=== PATIENT | female | born 1940 | race Caucasian/White ===

== ENCOUNTER 2019-11-13 06:51 | Inpatient (IN) | payer MEDICARE, OTHER ==
--- NOTE | 2019-11-09 12:19 | Diagnostic Imaging Report ---
EXAMINATION: CHEST 2 VIEWS INDICATION: Pre-operative COMPARISON: None FINDINGS: LINES/TUBES:Left chest pacer. LUNGS:The lungs are mildly hyperinflated. No focal consolidation or pulmonary edema. PLEURA:No pleural effusion or pneumothorax. MEDIASTINUM:The cardiomediastinal silhouette appears normal in size and shape. BONES/SOFT TISSUES:No acute osseous injury. ABDOMEN:No free air under the diaphragm. IMPRESSION: No focal pneumonia or pulmonary edema. Signed by: Juli Nolan MD on 11/09/2019 12:16 PM
[2019-11-09 12:36] LABS: BASOPHILS % 0.4 % (0.0-1.0); EOSINOPHILS # (AUTO) 0.1 (0.0-0.4); EOSINOPHILS % 0.9 % (0.0-6.0); HEMATOCRIT 49.1 % (34.2-44.1); HEMOGLOBIN 15.9 g/dL (12.0-16.0); LYMPHOCYTES # (AUTO) 1.4 (1.0-3.2); LYMPHOCYTES % 18.5 % (18.0-39.1); MEAN CORPUSCULAR HEMOGLOBIN 27.7 pg (28-32); MEAN CORPUSCULAR HGB CONC 32.4 g/dL (31-35); MEAN CORPUSCULAR VOLUME 85.4 fL (81-99); MONOCYTES # (AUTO) 0.4 (0.2-0.8); MONOCYTES % 5.5 % (4.4-11.3); NEUTROPHILS # (AUTO) 5.5 (2.1-6.9); NEUTROPHILS % 74.4 % (38.7-80.0); PLATELET COUNT 247 x10e3/uL (140-360); RED BLOOD COUNT 5.75 x10e6/uL (3.6-5.1); RED CELL DISTRIBUTION WIDTH 14.5 % (11.7-14.4)
[~2019-11-13] VITALS: Ht 157.5 cm; Wt 63.5 kg
[~2019-11-13 06:51] MED LIST: ACETAMINOPHEN325 M1 PO; ALENDRONATE SOD70 MG PO; AMLODIPINE BESY10 MG PO; CEFAZOLIN SOD 1 GM/NS 50ML 100 ML IV ONE; CELECOXIB 200 MG CAP ONE; DEXAMETHASONE SOD PHOS 10 MG/1 ML VIAL ONE; ELIQUIS5 MG PO; GABAPENTIN 300 MG CAP ONE; LOSARTAN-HCTZ1 EACH PO; MELOXICAM7.5 MG PO
[2019-11-13] MEDS ORDERED: VANCOMYCIN HCL 1,000 MG ONE (06:52)
[2019-11-13] MEDS ORDERED: BACITRACIN 50,000 UNIT VIAL ONE (06:53)
[2019-11-13] MEDS ORDERED: SODIUM CHLORIDE 0.9% 500ML 500 ML ONE (06:53)
[2019-11-13] MEDS ORDERED: TRANEXAMIC ACID 1,000 MG/10 ML ML ONE (06:53)
[2019-11-13] MEDS ORDERED: ROPIVACAINE 246.25 MG, EPINEPHRINE HCL 1:1000 1ML 0.5 MG, CLONIDINE HCL 0.08 MG, KETORO... INJ ONE ×5 (08:00)
[2019-11-13] MEDS ORDERED: MICROFIBRILLER COLLAGEN HEMOSTAT 1 GM POWDER TP ONE (10:06)
[2019-11-13] MEDS ORDERED: VANCOMYCIN HCL 500 MG ONE (10:22)
[2019-11-13] MEDS ORDERED: DOCUSATE SODIUM 100 MG CAP PO PRN (11:00)
[2019-11-13] MEDS ORDERED: ACETAMINOPHEN 650 MG SUPP PR PRN (11:00)
[2019-11-13] MEDS ORDERED: HYDROCODONE/APAP 7.5MG-325MG 1 EA TAB PO PRN (11:00)
[2019-11-13] MEDS ORDERED: DIPHENHYDRAMINE HCL INJ 50 MG/ML VIAL IV PRN (11:00)
[2019-11-13] MEDS ORDERED: HYDROCODONE/APAP 5MG-325MG TAB PO PRN (11:00)
[2019-11-13] MEDS ORDERED: KETOROLAC TROMETHAMINE 30 MG/ML VIAL IV PRN (11:00)
[2019-11-13] MEDS: SODIUM CHLORIDE 0.9% 1000ML 1,000 ML IV SCH ×2 (11:00→22:50)
--- NOTE | 2019-11-13 11:07 | Diagnostic Imaging Report ---
EXAM: FEMUR ONE VIEW LEFT, HIP LEFT ONE VIEW / OR DATE: 11/13/2019 10:15 AM INDICATION: Postop COMPARISON: None FINDINGS: There are postsurgical changes from prior left hip arthroplasty with intact appearing hardware in anatomic position. There are postsurgical changes from recent left femoral fracture fixation with placement of fixation plates/wires. Alignment appears anatomic. There is associated soft tissue swelling and gas, likely postoperative. IMPRESSION: Expected postsurgical changes from recent left femoral fracture fixation. Signed by: Dr. Willam Fonseca MD on 11/13/2019 11:04 AM
[2019-11-13] MEDS ORDERED: METOCLOPRAMIDE HCL 10 MG/2ML VIAL ONE (11:26)
[2019-11-13] MEDS ORDERED: LACTATED RINGER'S 1,000 ML ONE (11:41)
--- NOTE | 2019-11-13 11:51 | Diagnostic Imaging Report ---
EXAM: FEMUR ONE VIEW LEFT, PELVIS AP 1-2 VIEWS DATE: 11/13/2019 11:10 AM INDICATION: Postop FINDINGS: There are postsurgical changes from prior left hip arthroplasty with intact appearing hardware in anatomic position. There are postsurgical changes from recent left femoral fracture fixation with placement of fixation plates/wires. Alignment appears anatomic. There is associated soft tissue swelling and gas, likely postoperative. Degenerative changes noted of the lumbosacral spine, bilateral facet joints, and right hip. The visualized intrapelvic contents are grossly unremarkable. IMPRESSION: Expected postsurgical changes from recent left femoral fracture fixation. Signed by: Dr. Willam Fonseca MD on 11/13/2019 11:48 AM
[2019-11-13 11:53] LABS: HEMATOCRIT 30.4 % (34.2-44.1); HEMOGLOBIN 9.7 g/dL (12.0-16.0)
[2019-11-13] MEDS ORDERED: SODIUM CHLORIDE 0.9% 250ML 250 ML IV ONE (12:15)
[2019-11-13] MEDS: ONDANSETRON HCL INJ 2MG/ML 2ML 2 MG/ML VIAL IV PRN (13:20)
[2019-11-13] MEDS ORDERED: KETOROLAC TROMETHAMINE 30 MG/ML VIAL ONE (13:22)
[2019-11-13 13:50] LABS: HEMATOCRIT 34.3 % (34.2-44.1); HEMOGLOBIN 10.7 g/dL (12.0-16.0)
--- NOTE | 2019-11-13 14:17 | NUR ---
received to rm aaox4 no distress noted, updated on poc voiced understanding, dsg to l hip c/d/i, nguyen to bsd with yellow urine noted, ivf infusing to r wrist 20g no ss of infiltration noted, denies pain at this time, no other co voiced call light in reach will continue to monitor
[2019-11-13] MEDS ORDERED: SEVOFLURANE INHAL SOLN 250 ML PEN BTL ONE (14:39)
[2019-11-13] MEDS ORDERED: ONDANSETRON HCL INJ 2MG/ML 2ML 2 MG/ML VIAL ONE (14:39)
[2019-11-13] MEDS ORDERED: LIDOCAINE HCL 2% JELLY 5 ML TUBE ONE (14:39)
[2019-11-13] MEDS ORDERED: ETOMIDATE 2 MG/ML 10 ML INJ IV ONE (14:39)
[2019-11-13] MEDS ORDERED: ROCURONIUM BROMIDE 10 MG/ML 5ML VIAL IV ONE (14:39)
[2019-11-13] MEDS ORDERED: LIDOCAINE HCL 2% LOCAL INJ 5 ML SDV VIAL INJ ONE (14:39)
[2019-11-13] MEDS ORDERED: ACETAMINOPHEN 1000 MG/100 ML IV ONE (14:39)
[2019-11-13] MEDS ORDERED: FENTANYL CITRATE/PF 100MCG/2 ML INJ ONE (14:56)
[2019-11-13 15:25] VITALS: BP 115/54
--- NOTE | 2019-11-13 15:38 | NUR ---
PT SIGNED CHOICE FOR [facility] FILED IN CHART AND ASKED SEC TO GET PACKET TOGETHER, WILL INITIATE MOT AND COVID FORM
[2019-11-13] MEDS ORDERED: ACETAMINOPHEN 1000 MG/100 ML IV PRN (16:00)
--- NOTE | 2019-11-13 16:00 | NUR ---
FAXED CLINICALS TO [facility] AT [phone]
[2019-11-13 16:37] VITALS: BP 99/54
[2019-11-13] MEDS: ASPIRIN 325 MG TAB PO SCH (16:49)
[2019-11-13] MEDS: CEFAZOLIN SOD 1 GM/NS 50ML 50 ML IV SCH (16:50)
[2019-11-13] MEDS: CELECOXIB 100 MG CAP PO SCH (16:50)
--- NOTE | 2019-11-13 19:17 | NUR ---
SHIFT REPORT GIVEN TO ONCOMING NIGHT NURSE PT LEFT IN STABLE CONDITION, CALL LIGHT IN REACH BED LOW, LOCKED POSITION
--- NOTE | 2019-11-13 19:25 | NUR ---
PATIENT RECEIVED AT BED SIDE REPORT. PATIENT IS RESTING IN BED, AAOX3. RESP EVEN AND UNLABORED. NO DISTRESS NOTED AT THIS TIME. LEFT HIP DRESSING NOTED, DRY AND INTACT. CALL LIGHT WITHIN REACH. INSTRUCT TO CALL FOR ASSISTANCE. BED LOW/LOCKED. SIDE RAIL UP X2. CONTINUE TO MONITOR CLOSELY
--- NOTE | 2019-11-13 19:35 | Operative Report ---
DATE OF PROCEDURE: 11/13/2019 SURGEON: Deric Jaramillo MD CORPORATE INTERN: Hudson Dyer, certified PA. 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 SECONDARY DIAGNOSIS: Mechanical complication pertaining to left hip prosthesis. POSTOPERATIVE DIAGNOSES: 1. Mechanical complication pertaining to left hip prosthesis. 2. Intraoperative distal femur fracture. PROCEDURES: Left femur debridement of malunion, total hip arthroplasty revision, open reduction and internal fixation of periprosthetic fracture, open reduction and internal fixation of secondary intraoperative distal femur fracture. INDICATIONS: The patient is a 78-year-old woman with a complicated history. 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 Approximately 3 months ago, she felt a pop in her left femur. She has been bedridden since that time. She presented to our clinic with a malunion of a periprosthetic femur of her left femoral shaft with a grossly loose femoral prosthesis. She has a well-fixed acetabular prosthesis. She has osteoporosis. The findings and options have been discussed at length with the patient and her family on several occasions. The challenges of fixing this fracture and getting her mobilized have been clearly discussed. They have thought about it and gone through preoperative medical clearance. She would now like to proceed with the surgery. PROCEDURE IN DETAIL: The patient was brought to the operating room and placed under general anesthetic. She received prophylactic antibiotics and tranexamic acid in the holding area. She was positioned in the right lateral decubitus position. Her left lower extremity was prepped and draped in a sterile manner. A preoperative time-out was performed. An extensile incision was made over the lateral left thigh extending up into her previous total hip arthroplasty scar. Hemostasis was obtained with electrocautery. The fascia was incised. The posterior capsule was exposed. The hip was severely contracted and there was a 50-degree angulated healing fracture of the femoral shaft. As the fracture site was carefully exposed, it was evident that there was a large amount of fibrous exudate from aseptic lysis of the femoral shaft. There was a large defect in the posterior femoral shaft. The fibrinous exudate was removed. The fracture site was carefully mobilized. Osteotomes were used to debride some of the callus formation. Attention was redirected towards the proximal hip. The posterior capsule and extensive scar tissue were excised. The hip was dislocated. A punch was used to remove the femoral head. An extraction device was used to remove the femoral stem. Some of the cement mantle came with the stem, but there was still a fair amount in the canal. Because of the malunited fracture, this could be mobilized and accessed from the femoral fracture. Cement removal osteotomes were used to remove the cement mantle. A [employer] modular revision system was used. Once the distal canal was opened, this was gently reamed to 50 mm. I was very careful not to push my lock with how much I reamed the canal due to the poor bone quality. A 250 mm x 15 mm fluted and bowed stem was then advanced across the comminution of the fracture and into the distal femoral shaft. Acceptable purchase of the bone was felt to be obtained. A 6-hole cable plate was then placed onto the lateral shaft of the femur. The bone fragments that had previously been mobilized were returned to their approximate position. Decent secure fixation was felt to be obtained from the cable plate. Different trial bodies were placed onto the stem. A 50 mm body appeared to have appropriate adventism of limb length and with a standard 32 mm head provided good stability. The hip was reduced and put through a full arc of motion. An intraoperative x-ray was taken. As the hip was dislocated a second time, the distal femur cracked. This was exposed by extending the incision. There was a spiral fracture. A secondary 8-hole cable plate was placed across the fracture. This extended almost all the way down to the knee. Reasonable fixation was felt to be obtained. A standard 50 mm body and a ceramic 32 mm, but -3 head was placed onto the stem. A final reduction was performed. The hip was thoroughly irrigated with a shower tip pulsatile lavage on multiple occasions throughout the case. Hemostatic paste was placed along the posterior aspect of the femur. The fascia was closed with 0 Vicryl. An intraoperative x-rays confirmed satisfactory reduction of the fracture and positioning of all the hardware and the stem. A 1 g of vancomycin powder was sprinkled into the deep wound prior to closing the fascia. The skin was closed with subcuticular Vicryl and finn. A sterile bandage was applied. She was returned to the supine position, extubated and transported to the recovery room in stable condition. Estimated blood loss was 500 mL. At the end of the procedure, all needle and sponge counts were correct. Deric Jaramillo MD DR/MARIELA /[id number]
[2019-11-13 20:00] VITALS: BP 96/47
[2019-11-13] MEDS ORDERED: ZOLPIDEM TARTRATE 5 MG TAB PO PRN (21:00)
[2019-11-13 22:30] VITALS: BP 96/47
[2019-11-14] VITALS (8 sets, daily range): BP systolic 94–106; BP diastolic 40–52
[2019-11-14] MEDS: CEFAZOLIN SOD 1 GM/NS 50ML 50 ML IV SCH ×2 (00:36→08:12)
[2019-11-14 05:21] LABS: HEMATOCRIT 27.9 % (34.2-44.1); HEMOGLOBIN 9.2 g/dL (12.0-16.0)
--- NOTE | 2019-11-14 06:00 | NUR ---
DRESSING CHANGED TO LEFT HIP AND D/C BHATTI POD1 PER MD ORDER. URINE OUTPUT IS 500 ML AT THIS TIME. PATIENT IS DUE TO VOID
--- NOTE | 2019-11-14 07:00 | NUR ---
RECEIVED PATIENT AWAKE RESTING IN BED NO S/S OF DISTRESS. BED LOW, WHEELS LOCKED, SIDE RAILS X2. CALL LIGHT IN REACH WILL CONTINUE TO MONITOR PATIENT.
[2019-11-14] MEDS: ASPIRIN 325 MG TAB PO SCH ×2 (08:12→16:27)
[2019-11-14] MEDS: CELECOXIB 100 MG CAP PO SCH ×2 (08:12→16:27)
[2019-11-14] MEDS: ONDANSETRON HCL INJ 2MG/ML 2ML 2 MG/ML VIAL IV PRN (08:12)
--- NOTE | 2019-11-14 09:48 | NUR ---
FAXED H AND P AND PHYSICAL THERAPY NOTES TO [facility]
--- NOTE | 2019-11-14 10:27 | Consultation ---
DATE OF CONSULTATION: PRIMARY CARE PHYSICIAN: Dr. Harrison Hutton. The patient is status post ORIF, left femur total hip arthroplasty revision and ORIF intraoperative fractures. HISTORY OF PRESENT ILLNESS: The patient is a 78-year-old female with a complicated left hip problem. She has severe proximal bone destruction, grossly loose prosthesis and severe osteoporosis. She had a previous left hip replacement with loose prosthesis and severe osteoporosis and distal femur fracture that left the patient basically bedbound for few months. Please review the operative note. The patient is now status post surgical intervention. Pain is appropriate. No chest pain. No shortness of breath. The patient is stable at this time. PAST MEDICAL HISTORY: Permanent pacemaker secondary to sick sinus syndrome. Chronic atrial fibrillation, essential hypertension. Long-term anticoagulant therapy with Eliquis. Osteoarthritis, osteoporosis. PAST SURGICAL HISTORY: Right knee replacement, left hip replacement, cholecystectomy, permanent pacemaker, now status post revision of the left hip and ORIF of the left hip. SOCIAL HISTORY: The patient does not smoke or use alcohol. No regular drug. ALLERGIES: PENICILLIN. HOME MEDICATIONS: 1. Tylenol. 2. Alendronate. 3. Norvasc. 4. Eliquis. 5. Losartan HCTZ. 6. Meloxicam. PHYSICAL EXAMINATION: VITAL SIGNS: Temperature is 98, blood pressure 106/51, pulse rate is 60, respiration 18. GENERAL: The patient is not in acute distress, awake. HEENT: Normocephalic and atraumatic. Anicteric. NECK: Supple grossly. PULMONARY: Clear. CARDIOVASCULAR: Atrial fibrillation rate controlled. ABDOMEN: Soft. EXTREMITIES: No gross cyanosis or edema. Status post left hip replacement, ORIF. NEUROLOGIC: No focal deficit. LABORATORY DATA: WBC 7.4, hemoglobin 9.2, hematocrit 27.9, and platelets 247. IMPRESSION: 1. Status post open reduction and internal fixation, left femur, total hip arthroplasty revision and open reduction and internal fixation intraoperative fractures. 2. History and reason for surgeries, malunion of the left femur periprosthetic fractures. 3. Baseline atrial fibrillation, rate controlled with permanent pacemaker, anticoagulant therapy with Eliquis. 4. Hemodilution with some blood loss, postoperative care. 5. Chronic multiple medical problems. PLAN: We will repeat the CBC and BMP in the morning. Hold off on Eliquis. The patient is on aspirin for now. We will monitor the patient's anemia. If not having significant further decrease in hemoglobin and hematocrit, the patient may resume her Eliquis. We will continue with postoperative care including physical therapy. Thank you, Dr. Jaramillo. We will follow this patient with you. MD VANE Orta/MARIELA /[id number]
--- NOTE | 2019-11-14 13:12 | NUR ---
PATIENT HAS VOIDED SINCE BHATTI REMOVAL.
--- NOTE | 2019-11-14 19:42 | NUR ---
RECEIVED PATIENT IN BED AOX3 LEFT HIP WITH DRESSING DENIES PAIN AT THIS TIME . BED LOW, WHEELS LOCKED, S. CALL LIGHT IN REACH WILL CONTINUE TO MONITOR .
[2019-11-15] VITALS: BP 188/97
[2019-11-15 04:00] VITALS: BP 99/45
[2019-11-15 05:40] LABS: BASOPHILS % 0.1 % (0.0-1.0); EOSINOPHILS # (AUTO) 0.1 (0.0-0.4); EOSINOPHILS % 0.6 % (0.0-6.0); HEMATOCRIT 26.7 % (34.2-44.1); HEMOGLOBIN 8.7 g/dL (12.0-16.0); LYMPHOCYTES # (AUTO) 0.9 (1.0-3.2); LYMPHOCYTES % 10.3 % (18.0-39.1); MEAN CORPUSCULAR HEMOGLOBIN 28.5 pg (28-32); MEAN CORPUSCULAR HGB CONC 32.6 g/dL (31-35); MEAN CORPUSCULAR VOLUME 87.5 fL (81-99); MONOCYTES # (AUTO) 0.4 (0.2-0.8); MONOCYTES % 5.1 % (4.4-11.3); NEUTROPHILS % 83.4 % (38.7-80.0); PLATELET COUNT 134 x10e3/uL (140-360); RED BLOOD COUNT 3.05 x10e6/uL (3.6-5.1); RED CELL DISTRIBUTION WIDTH 14.6 % (11.7-14.4)
--- NOTE | 2019-11-15 06:02 | NUR ---
PT RESTING .DENIES PAIN DURING THE NIGHT .CALL LIGHT WITH IIN REACH ,CONTINUE TO MONITOR
[2019-11-15 06:03] LABS: ANION GAP 8.3 mmol/L (8-16); BLOOD UREA NITROGEN 10 mg/dL (7-26); BUN/CREATININE RATIO 16 (6-25); CARBON DIOXIDE 24 mmol/L (22-29); CHLORIDE 109 mmol/L (98-107); CREATININE, SERUM 0.63 mg/dL (0.57-1.11); EST GLOMERULAR FILTRATION RATE > 60 ML/MIN (60-); GLUCOSE 99 mg/dL (74-118); POTASSIUM 3.3 mmol/L (3.5-5.1); SODIUM 138 mmol/L (136-145)
--- NOTE | 2019-11-15 06:57 | NUR ---
BEDSIDE REPORT GIVEN TO THE ONCOMING NURSE
--- NOTE | 2019-11-15 07:00 | NUR ---
RECEIVED PATIENT AWAKE RESTING IN BED NO S/S OF DISTRESS. BED LOW, WHEELS LOCKED, SIDE RAILS X2. CALL LIGHT IN REACH WILL CONTINUE TO MONITOR PATIENT.
[2019-11-15] MEDS: ASPIRIN 325 MG TAB PO SCH ×2 (08:24→16:53)
[2019-11-15] MEDS: CELECOXIB 200 MG CAP PO SCH ×2 (08:24→16:53)
[2019-11-15 09:27] VITALS: BP 111/52
[2019-11-15 09:37] VITALS: BP 111/52
[2019-11-15] MEDS ORDERED: POTASSIUM CHLORIDE 10MEQ EA PO SCH (10:15)
[2019-11-15] MEDS ORDERED: IRON SUCROSE 100 MG in SODIUM CHLORIDE 0.9% 100 ML 100 ML IV SCH (11:00)
[2019-11-15 12:49] VITALS: BP 108/59
[2019-11-15] MEDS ORDERED: ONDANSETRON HCL 4 MG ORAL DISINTEGRATING TAB PO PRN (15:30)
[2019-11-15 17:13] VITALS: BP 116/46
--- NOTE | 2019-11-15 17:35 | NUR ---
REPORT CALLED TO YAMIL AT [facility]. SUMMARY OF CARE PROVIDED.
--- NOTE | 2019-11-15 20:00 | NUR ---
PT IS DISCHARGED TO [facility].PT HAS TAKEN BY THE AMBULANCE .PT HAS THE IV LINE LEFT HIP WITH DRESSING .NO ACUTE DISTRESS NOTED
== END 2019-11-15 20:00 | DRG 467 ==
LOC: OR 06:51 → PACU V 10:48 → MED/SURG 14:48
PROVIDERS: ADMIT Specialist; ATTEND Specialist
PROC: 0SPB0JZ Removal of Synthetic Substitute from Left Hip Joint, Open Approach (ICD-10-PCS; 2019-11-13)
PROC: 0QSC04Z Reposition Left Lower Femur with Internal Fixation Device, Open Approach (ICD-10-PCS; 2019-11-13)
PROC: 30233N1 Transfusion of Nonautologous Red Blood Cells into Peripheral Vein, Percutaneous Approach (ICD-10-PCS; 2019-11-13)
PROC: 0SRB0JA Replacement of Left Hip Joint with Synthetic Substitute, Uncemented, Open Approach (ICD-10-PCS; principal; 2019-11-13 10:00)
DX: M97.02XA Periprosthetic fracture around internal prosthetic left hip joint, initial encounter (principal); D62 Acute posthemorrhagic anemia; Z88.0 Allergy status to penicillin; Z95.0 Presence of cardiac pacemaker; I49.5 Sick sinus syndrome; M81.0 Age-related osteoporosis without current pathological fracture; T84.031A Mechanical loosening of internal left hip prosthetic joint, initial encounter; I10 Essential (primary) hypertension; Z11.59 Encounter for screening for other viral diseases
CPT/HCPCS: 36415; 71046; 72170; 80048; 85014; 85018; 85025; 86850; 86900; 86920; 87635; 97139; J0171; J0690; J1100; J1756; J1885; J2001; J2405; J2765; J2795; J3010; J3370; J7030; J7040; J7050; J7121; P9016